=== PATIENT | female | born 1950 | race Caucasian/White ===

== ENCOUNTER 2019-01-31 13:17 | Observation (INO) ==
--- NOTE | 2019-01-31 13:46 | Emergency Department Note ---
Disposition Clinical Impression: Chest pain Qualifiers: Chest pain type: unspecified Qualified Code(s): R07.9 - Chest pain, unspecified Disposition: Admitted As Inpatient Condition: Fair Time of Disposition: 14:52 General Adult HPI - General Chief complaint: ED Chest Pain Stated complaint: CP Time Seen by Provider: 01/31/19 13:31 Source: patient Limitations: no limitations Nursing Notes Reviewed: Yes Vital Signs Reviewed: Yes - History of Present Illness HPI Narrative: Presents with chest heaviness which has been going on the last few months is intermittent and today has had 2 episodes lasting 30 minutes at a time but no discomfort now. Some radiation to the neck and back no back pain at this time. Had some shortness of breath last night but none now. No diaphoresis. No new pain or swelling of the lower extremities. No pleuritic aspect. Social history: No smoking or alcohol. Family history: Positive for her father who of a heart attack at the age of 61 patient has no history of heart disease Pain Scale: 3 - Related Data Home Medications Medication Instructions Recorded Confirmed Albuterol Sulfate [Proair Hfa] 1 puff IH Q4H PRN 02/01/19 02/01/19 Empagliflozin [Jardiance] 25 mg PO DAILY 02/01/19 02/01/19 Lisinopril [Zestril] 40 mg PO DAILY 02/01/19 02/01/19 Metformin HCl [Fortamet] 500 mg PO DAILY 02/01/19 02/01/19 Metoprolol Tartrate 25 mg PO BID 02/01/19 02/01/19 Pioglitazone HCl [Actos] 30 mg PO DAILY 02/01/19 02/01/19 Sertraline HCl [Zoloft] 100 mg PO DAILY 02/01/19 02/01/19 hydrOXYzine HCl [Hydroxyzine HCl] 25 mg PO Q8H PRN 02/01/19 02/01/19 hydroCHLOROthiazide 25 mg PO DAILY 02/01/19 02/01/19 [Hydrochlorothiazide] Allergies Allergy/AdvReac Type Severity Reaction Status Date / Time latex Allergy Hives Verified 01/31/19 13:34 shellfish derived Allergy Anaphylaxis Verified 01/31/19 13:34 Review of Systems: Constitutional: No fever Vision: No new blurred vision ENT: + rhinorrhea Respiratory: No cough Allergic: No allergies : No blood in urine GI: No blood in stool Hematologic: No new bruising Dermatologic: No skin rash Musculoskeletal: No pain in the extremities Neuro: No new numbness of the extremities Past Medical History - Past Medical History Medical history: Reports: diabetes, hypertension Psychiatric history: Reports: anxiety, depression HOT DOG VENDER history: Reports: no HOT DOG VENDER history - Social History Smoking Status: Never smoker Smokeless Tobacco Status: No Alcohol use: Reports: none Drug use: Reports: none Physical Exam CONSTITUTIONAL: Well-appearing; well-nourished; A&O X 3, in no apparent distress HEAD: Normocephalic; atraumatic EYES: PERRL, no scleral icterus NOSE: The nose is normal in appearance without rhinorrhea NECK: No JVD or distended neck veins RESP: Normal chest excursion with respiration; breath sounds clear and equal bilaterally; no wheezes, rhonchi, or rales CARD: Regular rhythm, without murmurs, rub or gallop ABD: Non-distended; non-tender, soft, without rigidity, rebound or guarding,no pulsatile mass CHEST: Normal appearance. There is some minimal anterior chest wall pain with palpation SKIN: Normal for age and race; warm and dry without diaphoresis ; no apparent lesions EXTREMITIES: Pulses are 2 plus and equal times 4 extremities, no peripheral edema or calf muscle pain - General Limitations: no limitations General appearance: alert, in no apparent distress Course Vital Signs Temperature 97.8 F 01/31/19 13:33 Pulse Rate 63 01/31/19 13:33 Respiratory Rate 17 01/31/19 13:33 Blood Pressure 188/75 01/31/19 13:33 O2 Sat by Pulse Oximetry 100 01/31/19 13:33 Temperature 98.1 F 02/01/19 11:35 Pulse Rate 62 02/01/19 11:35 Respiratory Rate 19 02/01/19 11:35 Blood Pressure 160/80 02/01/19 11:35 O2 Sat by Pulse Oximetry 98 02/01/19 11:35 Oxygen Delivery Oxygen Delivery Room Air Medical Decision Making - MDM Narrative Medical decision making narrative: I did review the patient's EKG which does have some downsloping ST depression in the lateral leads concerning for ischemia. I do not have an old EKG to compare this to. Patient will be admitted. Testing including chest x-rays pending. 1346 I did speak with the hospitalist who accepts the patient for admission. I reviewed the test results. I did see the patient again and discussed the admis noemy plan with her. She is pain-free at this time. I did give her aspirin 325 mg by mouth 1452 - Medical Records Medical records reviewed: Yes I reviewed the patient's medical records. - Lab Data Lab results reviewed: Yes I reviewed the patient's lab results. Result diagrams: 01/31/19 13:37 01/31/19 13:37 Lab Results 01/31/19 01/31/19 Range/Units 13:37 13:37 WBC 6.1 (4.3-11.1) K/mcL RBC 4.76 (3.82-4.97) M/mcL Hgb 13.4 (11.5-15.4) g/dL Hct 42.3 (35.3-44.9) % MCV 88.9 (83.0-100.0) fL MCH 28.2 (28.0-33.3) pg MCHC 31.7 (31.6-35.5) g/dL RDW 13.4 (11.5-14.5) % Plt Count 217 (140-400) K/mcL MPV 10.8 (9.4-12.4) fL Immature Gran % 0.2 (0-4) % Seg Neutrophils % 53.6 % Lymphocytes % 32.7 % Monocytes % 7.9 % Eosinophils % 4.3 % Basophils % 1.3 % Neutrophils # 3.2 (1.6-8.9) K/mcL Lymphocytes # 2.0 (0.6-4.6) K/mcL Monocytes # 0.5 (0.0-1.3) K/mcL Eosinophils # 0.3 (0.0-0.6) K/mcL Basophils # 0.1 (0.0-0.2) K/mcL Sodium 137 (136-145) mEq/L Potassium 4.2 (3.5-5.1) mEq/L Chloride 102 (98-107) mEq/L Carbon Dioxide 29 (23-29) mEq/L BUN 25 H (8-23) mg/dL Creatinine 0.94 (0.60-1.20) mg/dL Est GFR ( Amer) > 60 (> 60) Est GFR (Non-Af Amer) 59 L (> 60) BUN/Creatinine Ratio 27 H (6-26) Glucose 114 H (70-105) mg/dL Calculated Osmolality 289 (280-300) Calcium 9.8 (8.6-10.3) mg/dL Troponin I < 0.03 (< 0.04) ng/mL - Radiology Data Radiology results reviewed: Yes I reviewed the patient's radiology results.
[2019-01-31 14:08] LABS: Basophils # 0.1 K/mcL (0.0-0.2); Basophils % 1.3 %; Eosinophils # 0.3 K/mcL (0.0-0.6); Eosinophils % 4.3 %; Hematocrit 42.3 % (35.3-44.9); Hemoglobin 13.4 g/dL (11.5-15.4); Immature Granulocytes % 0.2 % (0-4); Lymphocytes % 32.7 %; Mean Corpuscular HGB Conc 31.7 g/dL (31.6-35.5); Mean Corpuscular Hemoglobin 28.2 pg (28.0-33.3); Mean Corpuscular Volume 88.9 fL (83.0-100.0); Mean Platelet Volume 10.8 fL (9.4-12.4); Monocytes # 0.5 K/mcL (0.0-1.3); Monocytes % 7.9 %; Neutrophils # 3.2 K/mcL (1.6-8.9); Platelet Count 217 K/mcL (140-400); Red Blood Count 4.76 M/mcL (3.82-4.97); Red Cell Distribution Width 13.4 % (11.5-14.5); Segmented Neutrophils % 53.6 %; White Blood Count 6.1 K/mcL (4.3-11.1)
[2019-01-31 14:19] LABS: BUN/Creatinine Ratio 27 (6-26); Blood Urea Nitrogen 25 mg/dL (8-23); Calcium 9.8 mg/dL (8.6-10.3); Carbon Dioxide 29 mEq/L (23-29); Chloride 102 mEq/L (98-107); Glucose 114 mg/dL (70-105); Osmolality,Calculated 289 (280-300); Potassium 4.2 mEq/L (3.5-5.1); Sodium 137 mEq/L (136-145); Troponin I < 0.03 ng/mL (< 0.04); eGFR For African Americans > 60 (> 60); eGFR For Non-African Americans 59 (> 60)
[2019-01-31] MEDS ORDERED: Aspirin 325 MG TABLET PO ONE (14:40)
--- NOTE | 2019-01-31 15:32 | Internal Med History&Physical ---
Date of Encounter: 01/31/19 Time of Encounter: 15:16 Internal Medicine - H&P: HPI Chief complaint: chest pain Admitted From: Home Plans for Post Hospital Care: Home History of present illness: Ms. Durant is a 68 year old female past medical history of diabetes, hypertension, anxiety, depression who came in with chest pain on and off for last to 3 weeks associated with some exertion at home. It has been associated with palpitation sweating and lightheadedness. Denies any syncopal episodes. 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 Does report on and off leg pain Had some shortness of breath associated with it. Pain is substernal in nature radiating to right arm and neck. Reports having stress test in the hospital however could not find any reports in the past. Denies any medication allergies. Denies any pedal edema beyond her baseline. Patient was evaluated in ER with mostly unremarkable labs except slightly elevated BUN/creatinine ratio. Troponin was unremarkable. Patient was without any chest pain during interview in ER. Per ER physician's review of EKG there were some concern of signs of ischemia on lateral leads. Chest x-ray without any acute process. Patient's report taking Zoloft, metoprolol, lisinopril, charges, metformin, pioglitazone, HCTZ, hydroxyzine. Past Med Surg Social Fam HX - Past Medical History Medical history: diabetes, hypertension Psychiatric history: anxiety, depression - Past Surgical History Additional surgical history: hysterectomy - Social History Smoking Status: Never smoker Smokeless Tobacco Status: No Alcohol use: none Drug use: none - Additional Family History Additional family history: Father has AR at age 61 Internal Medicine - H&P: Meds Allergy/AdvReac Type Severity Reaction Status Date / Time latex Allergy Hives Verified 01/31/19 13:34 shellfish derived Allergy Anaphylaxis Verified 01/31/19 13:34 All Systems PM: A 10-system review of systems was performed and is negative for pertinent findings except as documented above in the HPI. - Constitutional Vitals: Temp Pulse Resp BP Pulse Ox 97.8 F 68 15 137/107 100 01/31/19 13:33 01/31/19 14:41 01/31/19 14:41 01/31/19 14:41 01/31/19 14:41 Exam: Constitutional: Vitals as noted. Conversant. No Apparent Distress. anxious Eyes : Sclera white, conjunctiva clear, no lid lag, PEARLA. ENT : Grossly normal hearing. dry mucus membranes. No JVD, no cervical lymphadenopathy. no thyromegaly or mass. Respiratory : Clear to auscultation bilaterally. No accessory muscle use, rales, rhonchi or wheezes Cardiovascular : RRR, +S1, +S2. no murmur, gallop, rubs. No chest wall t enderness GI/Abdominal : Soft, mild epigastric tenderness, Non-distended, normal bowel sounds, no peritoneal signs. no orgenomegaly or mass appreciated. no hernia. Musculoskeletal: no deformity noted. non pitting edema, pulses palpable and symmetrical in UE/LE. no calf tenderness. Neurological: AO X3, CN II-XII grossly intact, grossly normal motor and sensory exam. Skin: No skin rash, lesions or ulcers noted. Pych: anxious Internal Med - H&P Results - Labs CBC & Chem 7: 01/31/19 13:37 01/31/19 13:37 Labs: Short CBC 01/31/19 Range/Units 13:37 WBC 6.1 (4.3-11.1) K/mcL Hgb 13.4 (11.5-15.4) g/dL Hct 42.3 (35.3-44.9) % Plt Count 217 (140-400) K/mcL Neutrophils # 3.2 (1.6-8.9) K/mcL BMP 01/31/19 13:37 Sodium 137 Potassium 4.2 Chloride 102 Carbon Dioxide 29 BUN 25 H Creatinine 0.94 Glucose 114 H Calcium 9.8 Cardiac Enzymes 01/31/19 Range/Units 13:37 Troponin I < 0.03 (< 0.04) ng/mL - EKG Data -: EKG Interpreted by Myself EKG shows normal: sinus rhythm (minimal ST depression in V2-3) - Impressions ITS Impressions Chest X-Ray 01/31/19 13:45 IMPRESSION: No acute process. D/ : / Nahum Deras MD / Nahum Deras MD Interpreting Provider: Nahum Deras MD - Assessment and Plan (1) Chest pain Current Visit: Yes Status: Acute Assessment and plan: Is somewhat atypical in nature and less likely however patient has diabetes hypertension and significant family history. We will keep patient on hall monitor and trend troponins Obtain echocardiogram. Plan for stress test if troponins being negative for tomorrow. NPO after midnight. Qualifiers: Chest pain type: unspecified Qualified Code(s): R07.9 - Chest pain, unspecified (2) Diabetes Current Visit: Yes Status: Acute Assessment and plan: Patient's report last A1c 6.3 Hold home oral hypoglycemics. Keep on sliding scale insulin and Accu-Cheks before meals chest. 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 Will continue monitor and resume patient's home medications When necessary hydralazine for diastolic more than 100 and systolic more than 180 Qualifiers: Hypertension type: essential hypertension Qualified Code(s): I10 - Essential (primary) hypertension (4) Anxiety and depression Current Visit: Yes Status: Acute Assessment and plan: Continue home meds once dose confirmed - Time Spent With Patient Total time spent is greater than 50% in coordination of care (as documented) at patient's floor/unit and/or counseling patient:
[2019-01-31] MEDS ORDERED: Naloxone 0.4 MG/ML INJ IVP PRN (15:38)
[2019-01-31] MEDS ORDERED: Ringers Solution, Lactated 1,000 ML IVC SCH (16:00)
[2019-01-31] MEDS: Insulin LISPRO 300 UNITS/3 ML VIAL SQ SCH ×2 (16:55→20:47)
[2019-01-31] MEDS: *HR* Heparin 5,000 UNIT/ML VIAL SQ SCH (20:50)
[2019-02-01] MEDS: *HR* Heparin 5,000 UNIT/ML VIAL SQ SCH ×3 (06:00→20:55)
[2019-02-01] MEDS ORDERED: Regadenoson 0.4 MG/5 ML SYRINGE IVP ONE (06:19)
--- NOTE | 2019-02-01 06:56 | Electrocardiograph Report ---
[email or web address] Test Date: 2019-01-31 Pat Name: Senait Durant Department: [id number] Room: [facility] Gender: F Paratransit Driver: : 1950 Requested By: Juan Joshua Order Number: [id number] Reading MD: Aquiles Riley Measurements Intervals Warren Rate: 67 P: 6 RI: 177 QRS: 21 QRSD: 114 T: 36 QT: 389 QTc: 411 Interpretive Statements Sinus rhythm Electronically Signed On 02-01-2019 6:54:38 EDT by Aquiles Riley
[2019-02-01] MEDS ORDERED: Perflutren Lipid Microsphere 1.3 ML in 0.9 % Sodium Chloride 8.7 ML IVP ONE (07:15)
[2019-02-01] MEDS: Insulin LISPRO 300 UNITS/3 ML VIAL SQ SCH ×4 (10:20→20:57)
--- NOTE | 2019-02-01 11:09 | Internal Med Progress Note ---
Hospitalist Progress Note - Encounter Date of Encounter: 02/01/19 Time of Encounter: 11:06 - Subjective Interval History: Ms. Durant is a 68 year old female past medical history of diabetes, hypertension, anxiety, depression who came in with chest pain on and off for last to 3 weeks associated with some exertion at home. It has been associated with palpitation sweating and lightheadedness. Denies any syncopal episodes. 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 Does report on and off leg pain Had some shortness of breath associated with it. Pain is substernal in nature radiating to right arm and neck. Troponin was unremarkable. Per ER physician's review of EKG there were some concern of signs of ischemia on lateral leads. Chest x-ray without any acute process. Patient seen and examined in the room, she reported absence of chest pain currently. - Exam Vitals: Temp Pulse Resp BP Pulse Ox 98.0 F 67 16 155/71 98 02/01/19 09:29 02/01/19 09:29 02/01/19 09:29 02/01/19 09:29 02/01/19 09:29 Exam: Constitutional: Vitals as noted. Conversant. No Apparent Distress. anxious Eyes : Sclera white, conjunctiva clear, no lid lag, PEARLA. ENT : Grossly normal hearing. dry mucus membranes. No JVD, no cervical lymphadenopathy. no thyromegaly or mass. Respiratory : Clear to auscultation bilaterally. No accessory muscle use, rales, rhonchi or wheezes Cardiovascular : RRR, +S1, +S2. no murmur, gallop, rubs. No chest wall tenderness GI/Abdominal : Soft, mild epigastric tenderness, Non-distended, normal bowel sounds, no peritoneal signs. no orgenomegaly or mass appreciated. no hernia. Musculoskeletal: no deformity noted. non pitting edema, pulses palpable and symmetrical in UE/LE. no calf tenderness. Neurological: AO X3, CN II-XII grossly intact, grossly normal motor and sensory exam. Skin: No skin rash, lesions or ulcers noted. Pych: anxious - Assessment and Plan (1) Chest pain Current Visit: Yes Status: Acute Assessment and Plan: Is somewhat atypical in nature and less likely however patient has diabetes hypertension and significant family history. keep patient on monitoring and evaluation advisor and trend troponins echocardiogram revealed LV ejection fraction 60%, moderate left ventricular diastolic dysfunction, mild to moderate mitral regurgitation and tricuspid regurgitation, mild pulmonary hypertension. Plan for stress test (2) Diabetes Current Visit: Yes Status: Acute Assessment and Plan: Hold home oral hypoglycemics. Keep on sliding scale insulin and Accu-Cheks. (3) HTN (hypertension) Current Visit: Yes Status: Acute Assessment and Plan: Resume home meds once verified. continue monitoring BP. (4) Anxiety and depression Current Visit: Yes Status: Acute Assessment and Plan: Continue home meds. Mood stable. DVT Prophylaxis: Heparin sq. - Time Spent with Patient Total time spent is greater than 50% in coordination of care (as documented) at patient's floor/unit and/or counseling patient: Greater than 35 minutes Plan of Care Discussed with: patient Internal Medicine: Result - Labs CBC & Chem 7: 01/31/19 13:37 01/31/19 13:37 Labs: Short CBC 01/31/19 Range/Units 13:37 WBC 6.1 (4.3-11.1) K/mcL Hgb 13.4 (11.5-15.4) g/dL Hct 42.3 (35.3-44.9) % Plt Count 217 (140-400) K/mcL Neutrophils # 3.2 (1.6-8.9) K/mcL BMP 01/31/19 13:37 Sodium 137 Potassium 4.2 Chloride 102 Carbon Dioxide 29 BUN 25 H Creatinine 0.94 Glucose 114 H Calcium 9.8 Cardiac Enzymes 01/31/19 01/31/19 01/31/19 Range/Units 13:37 16:30 20:22 Troponin I < 0.03 < 0.03 < 0.03 (< 0.04) ng/mL - Impressions Impressions Chest X-Ray 01/31/19 13:45 IMPRESSION: No acute process. D/ / Nahum Deras MD / Nahum Deras MD Interpreting Provider: Nahum Deras MD Echocardiogram 02/01/19 08:32 Impressions: LVEF 60%. Moderate left ventricular diastolic dysfunction. Atypical septal motion. Normal right ventricular structure and function. Mild-moderate mitral regurgitation. Mild-moderate tricuspid regurgitation. Mild pulmonary hypertension. Left Ventricular Wall Motion: Rest Echo Findings All wall segments showed normal motion. Findings: Study Quality * Technically adequate exam. ECG Findings * Normal sinus rhythm with sinus arrhythmia or PACs. Left Ventricle * LVEF 60%. * Moderate left ventricular diastolic dysfunction. * Normal LV chamber size, wall thickness and function. * Atypical septal motion. Right Ventricle * Normal right ventricular structure and function. Left Atrium * Normal left atrial size. Right Atrium * Normal right atrial size. Aortic Valve * No aortic regurgitation. * Aortic valve not well visualized. * No aortic stenosis. Mitral Valve * Normal mitral valve structure. * No mitral stenosis. * Mild-moderate mitral regurgitation. Tricuspid Valve * Normal tricuspid valve structure. * Mild-moderate tricuspid regurgitation. Pulmonic Valve * Pulmonic valve is not well visualized. * No pulmonic stenosis. * No pulmonic regurgitation. Pulmonary Artery * Pulmonary artery not well visualized. Aorta * Normally sized aortic root. Pericardium * There is no pericardial effusion present. Interatrial Septum * Interatrial septum not well evaluated. IVC * The IVC is not well evaluated. 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
[2019-02-01] MEDS ORDERED: hydrOXYzine pamoate 25 MG CAPSULE PO PRN (13:36)
--- NOTE | 2019-02-01 15:43 | Anesthesia Evaluation PreOp ---
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: Denies Any Significant HX Other Medical History: Diabetes Type II Anesthesia History: No Prior Anesthetic Complications, Past Anesthesia (FAREED) : No Alcohol Use: none Drug use: none Medications and Allergies Albuterol Sulfate [Proair Hfa] 1 puff IH Q4H PRN 02/01/19 [History] Empagliflozin [Jardiance] 25 mg PO DAILY 02/01/19 [History] Lisinopril [Zestril] 40 mg PO DAILY 02/01/19 [History] Metformin HCl [Fortamet] 500 mg PO DAILY 02/01/19 [History] Metoprolol Tartrate 25 mg PO BID 02/01/19 [History] Pioglitazone HCl [Actos] 30 mg PO DAILY 02/01/19 [History] Sertraline HCl [Zoloft] 100 mg PO DAILY 02/01/19 [History] hydrOXYzine HCl [Hydroxyzine HCl] 25 mg PO Q8H PRN 02/01/19 [History] hydroCHLOROthiazide [Hydrochlorothiazide] 25 mg PO DAILY 02/01/19 [History] Allergy/AdvReac Type Severity Reaction Status Date / Time latex Allergy Hives Verified 01/31/19 13:34 shellfish derived Allergy Anaphylaxis Verified 01/31/19 13:34 - Meds/Allergy Pre-op Review Medications Reviewed: Yes Allergies Reviewed: Yes Beta Blockers on Current Med List: Yes If Beta Blockers taken, Date/Time (Last Dose taken): 01-31-2100 Anesthesia Results - Labs 01/31/19 13:37 01/31/19 13:37 - Imaging Additional studies: echo: Impressions: LVEF 60%. Moderate left ventricular diastolic dysfunction. Atypical septal motion. Normal right ventricular structure and function. Mild-moderate mitral regurgitation. Mild-moderate tricuspid regurgitation. Mild pulmonary hypertension.
[2019-02-01] MEDS: Lisinopril 20 MG TABLET PO SCH (15:59)
[2019-02-02 01:32] LABS: Hematocrit 40.3 % (35.3-44.9); Hemoglobin 12.9 g/dL (11.5-15.4); Mean Corpuscular Hemoglobin 28.5 pg (28.0-33.3); Mean Platelet Volume 11.1 fL (9.4-12.4); Platelet Count 217 K/mcL (140-400); Red Blood Count 4.53 M/mcL (3.82-4.97); Red Cell Distribution Width 13.3 % (11.5-14.5); White Blood Count 6.3 K/mcL (4.3-11.1)
[2019-02-02 01:51] LABS: BUN/Creatinine Ratio 23 (6-26); Blood Urea Nitrogen 22 mg/dL (8-23); Calcium 9.3 mg/dL (8.6-10.3); Carbon Dioxide 26 mEq/L (23-29); Chloride 103 mEq/L (98-107); Glucose 107 mg/dL (70-105); Osmolality,Calculated 292 (280-300); Sodium 139 mEq/L (136-145); eGFR For African Americans > 60 (> 60); eGFR For Non-African Americans 57 (> 60)
[2019-02-02] MEDS ORDERED: Ondansetron ODT 4 MG TAB.RAPDIS SL PRN (04:00)
[2019-02-02] MEDS ORDERED: hydroCHLOROthiazide 25 MG TABLET PO SCH (09:00)
[2019-02-02] MEDS: *HR* Heparin 5,000 UNIT/ML VIAL SQ SCH ×2 (09:22→14:14)
[2019-02-02] MEDS: Insulin LISPRO 300 UNITS/3 ML VIAL SQ SCH ×3 (10:48→17:27)
[2019-02-02] MEDS: Lisinopril 20 MG TABLET PO SCH (10:48)
--- NOTE | 2019-02-02 10:56 | Physician Discharge Referral ---
Home Health/Hosp Referral Info Transfer to: Home Health Provider in Charge Post Discharge: PCP - Diagnosis (1) Chest pain Priority: Primary Status: Acute (2) Diabetes Priority: Secondary Status: Acute (3) HTN (hypertension) Priority: Secondary Status: Acute (4) Anxiety and depression Priority: Secondary Status: Acute - Respiratory Orders Smoking Cessation: Smoking cessation has been advised. For more information, call the [place] Tobacco Quit Line at 9-420-BKYI-NOW. - Services Needed Following services are medically necessary services: Nursing, Home Health Aide, Physical Therapy, Occupational Therapy - Transfer Medications Home Medications: Albuterol Sulfate [Proair Hfa] 1 puff IH Q4H PRN 02/01/19 [History] Empagliflozin [Jardiance] 25 mg PO DAILY 02/01/19 [History] Lisinopril [Zestril] 40 mg PO DAILY 02/01/19 [History] Metformin HCl [Fortamet] 500 mg PO DAILY 02/01/19 [History] Metoprolol Tartrate 25 mg PO BID 02/01/19 [History] Pioglitazone HCl [Actos] 30 mg PO DAILY 02/01/19 [History] Sertraline HCl [Zoloft] 100 mg PO DAILY 02/01/19 [History] hydrOXYzine HCl [Hydroxyzine HCl] 25 mg PO Q8H PRN 02/01/19 [History] hydroCHLOROthiazide [Hydrochlorothiazide] 25 mg PO DAILY 02/01/19 [History] Allergies/Adverse Reactions: Allergy/AdvReac Type Severity Reaction Status Date / Time latex Allergy Hives Verified 01/31/19 13:34 shellfish derived Allergy Anaphylaxis Verified 01/31/19 13:34 Certification: Further, I certify that my clinical findings support that this patient is homebound (i.e. absences from home require considerable and taxing effort and are for medical reasons or voodoo services or infrequently or short duration when for other reasons) because: Homebound Reason: Patient requires assistance of a person or device to safely leave home Attestation: My signature below is to certify that this patient is under my care and that I, or nurse practitioner, or a physician's carpenter assistant installer working with me, has a [id number] encounter with this patient.
--- NOTE | 2019-02-02 11:46 | Cardiology Consult Note ---
<Bladimir Rhodes - Last Filed: 02/02/19 12:45> Date of Encounter: 02/02/19 Time of Encounter: 11:20 Assessment and Plan (1) Abnormal stress test Current Visit: Yes Status: Acute Abnormal stress test concerning for ischemia in the LAD territory. Stress: Pharmacologic stress ECG is negative for ischemia at level of heart rate achieved. Gated EF = 68%. Medium sized, moderate intensity, mostly reversible defect in the mid to apical anterior and apical lateral segments possibly due to ischemia. TTE shows preserved EF. Cardiac include DM, HTN,HLD. C/o typical chest pain symptoms. [facility] recommended. R/B/A reviewed with patient. She agrees to proceed. Start asa. Patient notes she cannot take statin therapy due to myalgias. (2) Chest pain Current Visit: Yes Status: Acute See plan above. Qualifiers: Chest pain type: unspecified Qualified Code(s): R07.9 - Chest pain, unspecified Discussion w patient/family: The assessment and plan as outlined above was discussed with the patient and/or family members who expressed understanding and agreement. All questions were answered. Thank you for involving us in the care of your patient. Please call with any questions. History of Present Illness Consult date: 02/02/19 Requesting physician: Pranav Verdin Consult reason: abnormal stress test Chief complaint: exertional chest pain History of present illness: Ms. Durant is a 68 year old female with past medical history of DM type II, HTN, HLD who presents with c/o intermittent back and chest pain over the last 12 months. Pain occurs with physical exertion and lifting. Symptoms improve with rest. Reports severe chest pain, dyspnea, diaphoresis with presyncope one month ago. 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 Her is currently hospitalized after fall so she presented after having symptoms gain yesterday. Initial cardiac work-up was negative. Stress test found to be abnormal today. Past Med Surg Social Fam HX - Past Medical History Medical history: diabetes, hyperlipidemia, hypertension Additional medical history: Anxiety. Psychiatric history: anxiety, depression - Past Surgical History Additional surgical history: hysterectomy - Social History Smoking Status: Never smoker Smokeless Tobacco Status: No Alcohol use: none Drug use: none Medications and Allergies Albuterol Sulfate [Proair Hfa] 1 puff IH Q4H PRN 02/01/19 [History] Empagliflozin [Jardiance] 25 mg PO DAILY 02/01/19 [History] Lisinopril [Zestril] 40 mg PO DAILY 02/01/19 [History] Metformin HCl [Fortamet] 500 mg PO DAILY 02/01/19 [History] Metoprolol Tartrate 25 mg PO BID 02/01/19 [History] Pioglitazone HCl [Actos] 30 mg PO DAILY 02/01/19 [History] Sertraline HCl [Zoloft] 100 mg PO DAILY 02/01/19 [History] hydrOXYzine HCl [Hydroxyzine HCl] 25 mg PO Q8H PRN 02/01/19 [History] hydroCHLOROthiazide [Hydrochlorothiazide] 25 mg PO DAILY 02/01/19 [History] Allergy/AdvReac Type Severity Reaction Status Date / Time latex Allergy Hives Verified 01/31/19 13:34 shellfish derived Allergy Anaphylaxis Verified 01/31/19 13:34 All Systems Review: The remainder of the systems were reviewed and are negative Physical Examination Vital Signs, Last 4 Hours Temp Pulse Resp BP Pulse Ox 02/02/19 08:08 97.9 F 73 16 144/61 95 General: Conversant, No Apparent Distress HEENT: Atraumatic, Normocephaly, Mucus Membranes Moist Neck: No JVD, Normal carotid pulses Cardiac: Reg Rate and Rhythm, Normal S1 and S2, No Murmur Lungs: Normal Breath Sounds, No Wheeze, Rales, Rhonchi Neuro: Alert and responsive, No focal deficits noted Abdomen: Soft, Non-Tender Skin: No rashes noted on visualized skin Musculoskeletal: No Chest Wall Tenderness Extremities: No Clubbing, No Cyanosis, No Edema, Normal Pulses Results 02/02/19 00:19 02/02/19 00:19 Lab Results 02/02/19 02/02/19 00:19 00:19 WBC 6.3 Hgb 12.9 Hct 40.3 Plt Count 217 Sodium 139 Potassium 4.0 Chloride 103 Carbon Dioxide 26 BUN 22 Creatinine 0.97 Glucose 107 H Calcium 9.3 Consult Discharge Plan - Plan Referrals: Miquel Seo DO [Primary Care Provider] - 02/06/19 11:30 am <Priyank Nieves - Last Filed: 02/02/19 16:31> Date of Encounter: 02/02/19 - Attending Attestation I have personally performed a face to face evaluation on this patient. I have reviewed and agree with the care plan. History and Exam by me shows: Presented with chest pain. Stress test abnormal. Discussed risks and benefits of left heart cath, she agreed to proceed. Assessment and Plan Discussion w patient/family: The assessment and plan as outlined above was discussed with the patient and/or family members who expressed understanding and agreement. All questions were answered. Thank you for involving us in the care of your patient. Please call with any questions. History of Present Illness History of present illness: Ms. Durant is a 68 year old female All Systems Review: The remainder of the systems were reviewed and are negative Physical Examination Vital Signs, Last 4 Hours Temp Pulse Resp BP Pulse Ox 02/02/19 16:15 97.7 F 73 16 150/80 94 02/02/19 16:00 97.7 F 70 14 136/66 94 02/02/19 15:40 97.5 F L 70 14 158/68 94 02/02/19 14:51 97.7 F 65 16 146/72 98 Results 02/02/19 00:19 02/02/19 00:19 Lab Results 02/02/19 02/02/19 00:19 00:19 WBC 6.3 Hgb 12.9 Hct 40.3 Plt Count 217 Sodium 139 Potassium 4.0 Chloride 103 Carbon Dioxide 26 BUN 22 Creatinine 0.97 Glucose 107 H Calcium 9.3
[2019-02-02] MEDS ORDERED: Aspirin 81 MG TAB.CHEW PO SCH (12:50)
[2019-02-02] MEDS ORDERED: methylPREDNISolone 125 MG/2 ML VIAL IVP ONE (13:02)
--- NOTE | 2019-02-02 14:38 | Pre-Sedation Evaluation ---
Pre-sedation evaluation - Pre-sedation checklist Date of procedure: 02/02/19 Procedure: n Recent Vitals: Last Vital Signs Temp 97.9 F 02/02/19 12:23 Pulse 57 02/02/19 12:23 Resp 16 02/02/19 12:23 BP 153/75 02/02/19 12:23 Pulse Ox 94 02/02/19 12:23 H&P (including ROS) documented in medical record: Yes Previous reaction to sedatives/anesthetics: No Dietary Status: NPO 6 hours prior to procedure Airway Assessment: Patient can open mouth completely, TMJ function normal Possible difficult airway: No ASA Classification *see protocol: CLASS II-Mild systemic disease Cardiac Registry (Cardio Only) - Functional Capacity Functional Capacity: >=4 METS with symptoms - Clincal Frailty Scale Clinical Frailty Scale: Well
[2019-02-02] MEDS ORDERED: Verapamil 5 MG/2 ML VIAL ONE (14:40)
[2019-02-02] MEDS ORDERED: 0.9 % Sodium Chloride 1,000 ML ONE ×2 (14:40→14:58)
[2019-02-02] MEDS ORDERED: Heparin 1,000 UNITS/500 mL 500 ML ONE (14:41)
[2019-02-02] MEDS ORDERED: Iopamidol 125 ML INFUS..BTL ONE (14:41)
[2019-02-02] MEDS ORDERED: Nitroglycerin 1,000 MCG/10 ML VIAL IV ONE (14:41)
[2019-02-02] MEDS ORDERED: *HR* Heparin 10,000 UNIT/10 ML VIAL ONE (14:41)
[2019-02-02] MEDS ORDERED: *HR* Midazolam HCl 2 MG/2 ML VIAL ONE (14:56)
[2019-02-02] MEDS ORDERED: Acetaminophen 325 MG TABLET PO PRN (15:40)
--- NOTE | 2019-02-02 15:40 | Event Note ---
Date of Encounter: 02/02/19 Time of Encounter: 15:39 - Cardiology Event Note Cath completed LVEF 60% Normal coronary arteries.
--- NOTE | 2019-02-02 15:44 | Invasive Diagnostic Lab Proc ---
Name: Senait Durant Date of Study: 02/02/2019 Date: 1950 Ht: 64.2in Medical Record#: [id number] Age: 68 Wt: 231.49lb Gender: Female BSA: 2.09 Order #: [id number] BMI: 39.52 Physicians Procedure Physician: Dav Humphrey MD Referring MD: Referring MD: Staff Name Position Time In GatesCorieUmm RT (R) Monitor 03:03 PM Mckinley Santos RN Rn Unit Manager 03:03 PM Nany Torres RT (R) Scrub 03:03 PM Radha Barnett RT (R) Scrub 03:03 PM Procedures Performed Procedure L HRT ARTERY/VENTRICLE ANGIO Pre-Procedure Checklist Informed consent is complete signed and on chart. H&P is on chart. ID band is on and ID verified with patient. Patient NPO for procedure The procedure was described for the patient and questions were answered. Blood Pressure: 144/61 ECG is on chart. Plan of Care Patient will tolerate the procedure without complications. Adequate level of comfort will be maintained. Hemodynamics will remain stable Patient will recover from procedure without complications. Respiratory function will be maintained. Cardiac rhythm will remain stable. Patient temperature will be maintained. Patient and/or family have verbalized understanding of the procedure. Patient Education Chief Complaint/Reason for Test: Cardiac Cath Developmental Category: Geriatric (65+ years) Developmentally Appropriate for Age: Yes Learning Barriers: None Education Needs: Procedure Education Method: Verbal Information Taught: Cardiac Cath Educational Evaluation: Able to repeat information Intravenous Access Time IV Size Location DC'd Fluid/Drip Rate Units RN 02:37 PM 18g 1 05/19" Patent On Arrival Rt Antecubital Allergies Shellfish Iodine latex shellfish derived Vital Signs Time BP (mmHg) HR (bpm) O2 Sat. RR (bpm) LOC 02:37 PM 144 / 61 73 95 % 16 5 = Fully awake and oriented or at pre-proc level 03:04 PM / % 5 = Fully awake and oriented or at pre-proc level 03:05 PM / % 4 = Oriented but drowsy 03:10 PM 182 / 77 73 95 % 18 03:16 PM 170 / 77 75 96 % 33 03:19 PM 165 / 83 72 95 % 29 03:24 PM 171 / 83 82 96 % 19 Procedural Medications Time Medication Dose Units Method Given By 03:05 PM Oxygen 2 L/min nasal cannula Mckinley Santos RN 03:07 PM Versed 2 mg Intravenous Mckinley Santos RN 03:11 PM Lidocaine 2% 2 ml Subcutaneous Dav Humphrey MD 03:15 PM Heparin 4000 units Nitroglycerin 4000 mcg Verapamil 200 mg Intraarterial Dav Humphrey MD ASA Classification: CLASS II- Mild systemic disease (i.e. well-controlled diabetes, hypertension, asthma, cigarette smoking) Amie Score Preprocedure Postprocedure Activity 2- Moves 4 extremities sustained head lift Activity 2- Moves 4 extremities sustained head lift Circulation 2- SBP +/= 20 points of pre-anesthetic level Circulation 2- SBP +/= 20 points of pre-anesthetic level Consciousness 2- Awake and alert oriented x 3 Consciousness 2- Awake and alert oriented x 3 O2 Saturation 2- Able to maintain O2 satruation of 92% on room air O2 Saturation 2- Able to maintain O2 satruation of 92% on room air Respiratory 2- Able to deep breathe and cough well Respiratory 2- Able to deep breathe and cough well Total Score 10 Total Score 10 Contrast Agent: Isovue Diagnostic Contrast: 65 ml Total Contrast: 65 ml Fluoro Dose: 12 mGy Procedure Log Time Note Enter By 03:01 PM CathStat 03:02 PM Pt arrived to laboratory apparatus glass grinder 2 at 15:02 [facility] 03:02 PM Physician arrived 15: [facility] 03:[address] [facility] 03:03 PM Sign in performed according to hospital policy. Informed consent was obtained. [facility] 03:03 PM Patient charges- Angio tray pack, Navilyst 3mm J, Pulse Oximetry and ACIST tubing and transducer [facility] 03:03 PM Umm Diaz RT (R) Position: Monitor Time in: 15: [facility] 03:03 PM Mckinley Santos RN Position: Rn Unit Manager Time in: 15: [facility] 03:03 PM Nany Torres RT (R) Position: Scrub Time in: 15: [facility] 03:03 PM Radha Barnett RT (R) Position: Scrub Time in: 15: [facility] 03:04 PM Procedure start 15: [facility] 03:04 PM Time: 15:04 Patient comfortable and pain free: Yes [facility] 03:05 PM Time: 15:04LOC: 5 = Fully awake and oriented or at pre-proc level :05 PM Time: 15:05 Oxygen on at 2 L/min per nasal cannula by Mckinley Santos RN natalya 03:06 PM ASA Class CLASS II- Mild systemic disease (i.e. well-controlled diabetes, hypertension, asthma, cigarette smoking) [facility] 03:07 PM Time: 15:07 Versed 2 mg Intravenous Given by Mckinley Santos RN [facility] 03:08 PM Vitals capture started with the following parameters, Patient=Adult, Interval=5 min, Initial Roktozva=372 mmHg, Deflation Rate=3 mmHg, Cuff placed on Right Arm 03:09 PM Recorded ECG: HR=71 Condition=Condition 1 03:09 PM Hair removed from procedure site in holding area using clippers. Right wrist and Right groin prepped with Chloraprep by Mckinley Santos RN, then patient was draped. Skin intact. [facility] 03:10 PM HR=73 bpm, IGCK=132/77 mmhg, SpO2=95.0 %, Resp=18 B/min 03:11 PM Time out was performed according to hospital policy. Conscious sedation and anesthesia was achieved (see medication log with in this report above) :15 PM Time: 15:11 2 ml Lidocaine 2% to right radial Subcutaneous Given by Dav Humphrey MD 03:15 PM Access obtained by percutaneous puncture. 5/6Fr 10cm Terumo Glidesheath sheath placed in right Radial artery. [id number] 03:16 PM HR=75 bpm, NEJY=912/77 mmhg, SpO2=96.0 %, Resp=33 B/min 03:16 PM Pressure channel 2 zeroed. 03:16 PM Time: 15:15 Patient given 4,000 units Heparin, 4000 mcg Nitroglycerin, and 200 mg Verapamil Intraarterial by Dav Humphrey MD. This is given to reduce risk of vessel spasm and thrombosis. 03:16 PM 0.035 260cm Navilyst 3mmJ wire [id number] 03:16 PM 5Fr FL 3.5 catheter inserted over the wire [id number] [facility] 03:18 PM LCA angiography performed in multiple views. [facility] 03:18 PM Recorded Pressure: Ao, HR=75, Condition=Condition 1 (Aorta) Ao 168/77/112 03:19 PM Recorded Pressure: Ao, HR=70, Condition=Condition 1 (Aorta) Ao 145/80/107 03:19 PM HR=72 bpm, YOHY=686/83 mmhg, SpO2=95.0 %, Resp=29 B/min 03:19 PM Recorded Pressure: Ao, HR=72, Condition=Condition 1 (Aorta) Ao 125/83/103 03:20 PM Time: 15:05LOC: 4 = Oriented but drowsy [facility] 03:20 PM Time: 15:04 Patient comfortable and pain free: Yes [facility] 03:20 PM Catheter removed [facility] 03:20 PM 5Fr FR 4 [facility] R[facility] angiography performed in multiple views. [facility] 03:21 PM Recorded Pressure: Ao, HR=83, Condition=Condition 1 (Aorta) Ao 156/101/127 03:22 PM Catheter removed [facility] 03:22 PM 5Fr Pigtail catheter [facility] the [facility] PM Catheter crossed the aortic valve and was selectively placed in the left ventricle. Pressures recorded on pullback for left heart catheterization. [facility]ilton 03:23 PM Recorded Pressure: LV, HR=84, Condition=Condition 1 (Left Ventricle) LV 116/10/10 03:23 PM Recorded Pressure: LV, HR=83, Condition=Condition 1 (Left Ventricle) LV 182/32/33 03:23 PM Bolus angiogram of left Ventricle complete: hand injection. amilton 03:23 PM Recorded Pressure: LV, Ao, HR=81, Condition=Condition 1 (Left Ventricle) LV 16/16/15, (Aorta) Ao 117/33/72 03:24 PM HR=82 bpm, BLXM=461/83 mmhg, SpO2=96.0 %, Resp=19 B/min 03:24 PM Catheter removed amilton 03:25 PM Procedure completed at 15:25 02/02/2019 [facility] 03:25 PM Did you address PIOTR flow and Dominance? YesCoronary Dominance: right [facility] 03:26 PM Sign out completed: Radiation Dose 134.51 mGy, 11.8 Gy/cm2 Fluoro Time: 1.2 Isovue 370 - 200ml contrast 65 ml given by Dav Humphrey MD. Complications: None. 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 Sedation minutes 18. Cardiac Rehab Consult needed: No. Confirmed administered medications: Yes [facility] 03:26 PM Isovue 370 - 125ml,1 Bottle(s) used. [facility] 03:26 PM Arterial sheath pulled, Vasc Band closure device used and was Successful S/N. [facility] 03:26 PM 8 ml air in Vasc Band. amil 03:26 PM Estimated Blood Loss: minimal [facility] 03:26 PM Post ECG NSR amil 03:26 PM Post Blood Pressure 171/83 amil 03:27 PM Information taught Cardiac Cath and Vasc Band amil 03:27 PM Education needs Plan of Care, Procedure, and Responsibilities of Patient in Care [facility] 03:27 PM Learning barriers :None [facility] 03:27 PM Education Methods Verbal [facility] 03:27 PM Education evaluation Able to repeat information [facility] 03:27 PM Site status No bleeding/ No Hematoma - Rt Groin as reported by Nany Torres RT (R) at 15:27 [facility] 03:28 PM Family placed in consult room. [facility] 03:30 PM Report given to Libby AVILA Pt taken to 3B Room #12. 15:30 [facility] 03:30 PM Patient out of room: 15:30 [facility] Complications Complication None Hemodynamics Pressures Site Systolic/A Wave Diastolic/V Wave Mean AO 168 77 112 AO 145 80 107 AO 125 83 103 AO 156 101 127 LV 116 10 10 LV 182 32 33 LV 16 16 15 AO 117 33 72 Post Procedure Information Blood Pressure: 171/83 mmHg Rhythm: NSR Post procedural instructions were given Closure Device Time Device Success/Fail 02/02/2019 3:31:00 PM Mechanical Compression Successful Site Checks Time Location Status Staff Sheath In? Note 03:27 PM Rt Groin No bleeding/ No Hematoma Nany Torres RT (R) Pulses Time Site Pre-Procedure Post-Procedure Note 02/02/2019 2:37:00 PM Bilateral radial 2+ per floor nurse documentation 02/02/2019 2:37:00 PM Bilateral DP 2+ per floor nurse documentation Updated by Umm Diaz RT (R) on 02/02/2019 3:37:52 PM electronically signed on 02/02/2019 3:38:20 PM with status of Final
--- NOTE | 2019-02-02 16:00 | Discharge Summary ---
- NOTES TO OUTPATIENT PROVIDER Notes to Outpatient Provider: f/u with PCP within 2 weeks. Date of Encounter: 02/02/19 Time of Encounter: 15:58 - Discharge Diagnosis (1) Chest pain Priority: Primary Status: Acute Qualifiers: Chest pain type: unspecified Qualified Code(s): R07.9 - Chest pain, unspecified (2) Diabetes Priority: Secondary Status: Chronic Qualifiers: Diabetes mellitus type: type 2 Diabetes mellitus intermediate project manager insulin use: without intermediate project manager use Diabetes mellitus complication status: with other specified complication Qualified Code(s): E11.69 - Type 2 diabetes mellitus with other specified complication (3) HTN (hypertension) Priority: Secondary Status: Chronic Qualifiers: Hypertension type: essential hypertension Qualified Code(s): I10 - Essential (primary) hypertension (4) Anxiety and depression Priority: Secondary Status: Acute Hospital course: Ms. Durant is a 68 year old female past medical history of diabetes, hypertension, anxiety, depression who came in with chest pain on and off for last to 3 weeks associated with some exertion at home. It has been associated with palpitation sweating and lightheadedness. Denies any syncopal episodes. 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 Does report on and off leg pain Had some shortness of breath associated with it. Pain is substernal in nature radiating to right arm and neck. Reports having stress test in the hospital however could not find any reports in the past. Patient was evaluated in ER with mostly unremarkable labs except slightly elevated BUN/creatinine ratio. Troponin was unremarkable. Echocardiogram showed LV EF 60%, moderate LV DD, mild to moderate mitral regurgitation and tricuspid regurgitation, and mild pulmonary hypertension. Stress nuclear test is negative for ischemia however a medium-sized moderate intensity mostly reversible defect in mid to apical anterior and apical lateral segment possible reversible ischemia was noted. Cardiology was consulted, LHC was performed, however, coronary artery was free of disease. Patient is discharged, she will follow-up with PCP within 2 weeks. Discharge discussed with: patient Time spent discussing smoking cessation with patient: more than 10 minutes - Time Spent with Patient Total time spent providing and/or coordinating discharge services: Time spent: Greater than 30 minutes - Discharge Medications Prescriptions: Continued Sertraline HCl [Zoloft] 100 mg PO DAILY Albuterol Sulfate [Proair Hfa] 1 puff IH Q4H PRN PRN Reason: Dyspnea hydroCHLOROthiazide [Hydrochlorothiazide] 25 mg PO DAILY Empagliflozin [Jardiance] 25 mg PO DAILY hydrOXYzine HCl [Hydroxyzine HCl] 25 mg PO Q8H PRN PRN Reason: Anxiety Lisinopril [Zestril] 40 mg PO DAILY Metformin HCl [Fortamet] 500 mg PO DAILY Metoprolol Tartrate 25 mg PO BID Pioglitazone HCl [Actos] 30 mg PO DAILY Home Medications: Albuterol Sulfate [Proair Hfa] 1 puff IH Q4H PRN 02/01/19 [History] Empagliflozin [Jardiance] 25 mg PO DAILY 02/01/19 [History] Lisinopril [Zestril] 40 mg PO DAILY 02/01/19 [History] Metformin HCl [Fortamet] 500 mg PO DAILY 02/01/19 [History] Metoprolol Tartrate 25 mg PO BID 02/01/19 [History] Pioglitazone HCl [Actos] 30 mg PO DAILY 02/01/19 [History] Sertraline HCl [Zoloft] 100 mg PO DAILY 02/01/19 [History] hydrOXYzine HCl [Hydroxyzine HCl] 25 mg PO Q8H PRN 02/01/19 [History] hydroCHLOROthiazide [Hydrochlorothiazide] 25 mg PO DAILY 02/01/19 [History] Allergies/Adverse Reactions: Allergy/AdvReac Type Severity Reaction Status Date / Time latex Allergy Hives Verified 01/31/19 13:34 shellfish derived Allergy Anaphylaxis Verified 01/31/19 13:34 Date of admission: 01/31/19 14:57 Primary care physician: Miquel Seo DO Consults: 01/31/19 16:22 Consult to Data Coder Operator [CONS] Routine Reason for SW Consult: Pt takes care of while not able to move around wery well. Multiple falls in the recent past. 02/01/19 09:14 Consult to Occupational Therapy [CONS] Routine Comment: Evaluate, develop and implement POC Reason for Consult: FALLS Does patient have active BEDREST order?: No Is patient medically & hemodynamically stable?: Yes Consult to Physical Therapy [CONS] Routine Comment: Evaluate, develop and implement POC Reason for Consult: FALLS Does patient have active BEDREST order?: No Is patient medically & hemodynamically stable?: Yes 02/02/19 10:54 Consult to Cardiology [CONS] Routine Comment: Consulting Provider: Cardiology Skye Reason for Consult: abnormal stress test Call Completed: Yes Anticipated date of discharge: 02/02/19 - Constitutional Vitals: Temp Pulse Resp BP Pulse Ox 97.7 F 65 16 146/72 98 02/02/19 14:51 02/02/19 14:51 02/02/19 14:51 02/02/19 14:51 02/02/19 14:51 General appearance: Present: A&O X 3 Exam: Constitutional: Vitals as noted. Conversant. No Apparent Distress. anxious Eyes : Sclera white, conjunctiva clear, no lid lag, PEARLA. ENT : Grossly normal hearing. dry mucus membranes. No JVD, no cervical lymphadenopathy. no thyromegaly or mass. Respiratory : Clear to auscultation bilaterally. No accessory muscle use, rales, rhonchi or wheezes Cardiovascular : RRR, +S1, +S2. no murmur, gallop, rubs. No chest wall tenderness GI/Abdominal : Soft, mild epigastric tenderness, Non-distended, normal bowel sounds, no peritoneal signs. no orgenomegaly or mass appreciated. no hernia. Musculoskeletal: no deformity noted. non pitting edema, pulses palpable and symmetrical in UE/LE. no calf tenderness. Neurological: AO X3, CN II-XII grossly intact, grossly normal motor and sensory exam. Skin: No skin rash, lesions or ulcers noted. Pych: anxious - Patient Status Disposition: Home, Self-Care Condition: Fair Functional capacity at discharge: independent ambulation Overall status at discharge: patient is progressing back to baseline - Discharge Instructions Follow Up With: Miquel Seo DO [Primary Care Provider] - 02/06/19 11:30 am - Diet and Activity Activity: increase activity as tolerated Diet: diabetic diet, low fat, low cholesterol, low salt diet
[2019-02-02 18:10] VITALS: BP 156/84
== END 2019-02-02 19:05 | disposition home or self-care (01) ==
LOC: EMEROOARM 13:17 → 3BNU 13:17
PROVIDERS: ADMIT Internal Medicine; ATTEND Internal Medicine